=== PATIENT | female | born 1995 | race Caucasian/White ===

== ENCOUNTER 2018-01-30 11:27 | Emergency (ER) | payer OTHER ==
[~2018-01-30] VITALS: Ht 162.6 cm; Wt 111.1 kg
[2018-01-30 11:30] VITALS: BP 126/92
--- NOTE | 2018-01-30 11:39 | NUR ---
PT AMBULATES TO BED 3
--- NOTE | 2018-01-30 11:47 | NUR ---
PT. BIB MOTHER DUE TO R TOE LACERATION X 0930 TODAY S/P WOOD TABLE FALLING ON FOOT. PT STATES " I WAS IN SCHOOL AND A TABLE FELL ON MY FOOT , IT DIDNT HURT AND I DIDNT NOTICE IT WAS THAT BAD UNTIL I LOOKED DOWN AND SAW IT BLEEDING, SO I CAME OVER HERE". 5/10 THROBBING NON RADIATING PAIN IN R TOE. BLEEDING CONTROLLED. CAP REFILL LESS THAN 3 SEC. RR EVEN AND UNLABORED. SENSATION INTACT. WILL CONTIUE TO MONITOR. ER MD NOTIFIED. SAFETY PRECAUTIONS IMPLEMENTED.
[2018-01-30] MEDS ORDERED: LIDOCAINE 2% 1000 MG/50 ML VIAL INJ ONE (11:55)
--- NOTE | 2018-01-30 11:59 | NUR ---
XRAY AT BEDSIDE
--- NOTE | 2018-01-30 12:40 | NUR ---
dr byrd at bedside, repairing lac at this time
[2018-01-30 13:05] VITALS: BP 120/88
--- NOTE | 2018-01-30 13:05 | NUR ---
Patient discharged with v/s stable. Written and verbal after care instructions given and explained. Patient alert, oriented and verbalized understanding of instructions. Ambulatory with steady gait. All questions addressed prior to discharge. ID band removed. Patient advised to follow up with PMD. Rx of CEPHALAXIN 500MG, TRAMADOL 50MG given. Patient educated on indication of medication including possible reaction and side effects. Opportunity to ask questions provided and answered.
== END 2018-01-30 13:05 | disposition home or self-care (01) ==
LOC: MED 11:27
DX: S92.421A Displaced fracture of distal phalanx of right great toe, initial encounter for closed fracture (principal); W20.8XXA Other cause of strike by thrown, projected or falling object, initial encounter; Y93.89 Activity, other specified; Y92.89 Other specified places as the place of occurrence of the external cause; Y99.8 Other external cause status
CPT/HCPCS: 12001; 73660; 99284; J2001; Q0092